=== PATIENT | female | born 2000 | race Caucasian/White ===

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

== ENCOUNTER 2023-08-17 15:35 | Emergency (ER) | payer OTHER, SELFPAY ==
[2023-08-17] MEDS ORDERED: Dexamethasone 10 MG/ML VIAL ONE (17:24)
[2023-08-17] MEDS ORDERED: Ibuprofen 200 MG TAB ONE (17:24)
[2023-08-17] MEDS ORDERED: Bicillin LA 1.2 MILLION UNITS/2 ML SYRINGE ONE (17:27)
== END 2023-08-17 17:35 | disposition home or self-care (01) ==
LOC: ERS 15:35
DX: J02.0 Streptococcal pharyngitis (principal); Z87.891 Personal history of nicotine dependence
CPT/HCPCS: 96372; 99282; J0561; J1100